=== PATIENT | male | born 1965 | race Caucasian/White ===

== ENCOUNTER → 2016-07-26 | Day surgery (SDC) | payer OTHER ==
[~2016-07-26] VITALS: Ht 180.3 cm; Wt 132.9 kg
[~2016-07-26] MED LIST: FLOMAX0.4 M1 PO; FLONASE ALLERG9.9 ML; LEVOTHYROXINE50 MCG PO; PERCOCET 5-3251 EACH PO; PROAIR HFA8.5 GM INH; PROSCAR5 M1 PO; ZANTAC150 M1 PO
--- NOTE | 2016-07-26 15:31 | Operative Report ---
Operative/Inv Procedure Report Surgery Date: 07/26/16 Name of Procedure: Laparoscopic incisional hernia repair Pre-Operative Diagnosis: Incisional hernia Post-Operative Diagnosis: Same Estimated Blood Loss: scant Surgeon/Stretch Box Tender: NIA PALM,ISMAEL Anderson/Eduarda VISNON Anesthesia: general endotracheal tube Implants: 9 cm Parietex mesh Operative/Procedure Note Note: After consent is brought to the operating room and laid supine. Gen. anesthesia was obtained and his abdomen was prepped and draped. Skin the left upper quadrant was able to local anesthesia a transverse incision made sharply. We gained access to the peritoneum using a 12 mm optical trocar. Pneumoperitoneum was achieved. There is no overt bowel injury. 2, 5 mm ports were placed in the left lower quadrant after local anesthesia instilled and under direct vision the camera. The abdomen was explored. There was an umbilical hernia defect that repaired previously. It appeared to be intact. There was a superiorly based defect above the umbilicus. It measured 2 cm in greatest dimension. We took down the falciform ligament in the preperitoneal fat the hernia sac was delivered. We chose a 9 cm round piece of Parietex mesh to cover the hernia defect as well as a prior umbilical site to the concern of a recurrent umbilical hernia. The mesh was marked for orientation. 0 Canterbury-Link sutures were then placed in 4 quadrants. The mesh was Then hydrated rolled up and placed the peritoneal cavity. It was unraveled below the defect. The transfixion sutures then brought up percutaneously and tied down. The mesh was circumferentially adhered to keep abdominal wall using the absorbable tackers in a double crown fashion. The hernia sac contents were then extracted in the ports removed. The fascia and left upper quadrant was closed with 0 Vicryl suture. Skin incisions closed with 4-0 Vicryl. Steri-Strips and sterile dressing applied. Sponge and needle counts are correct CC: SUSIE DUENAS APRN
== END ==
LOC: STS 03:00
DX: K43.2 Incisional hernia without obstruction or gangrene (principal); E03.9 Hypothyroidism, unspecified; M54.12 Radiculopathy, cervical region; M53.9 Dorsopathy, unspecified; Z22.322 Carrier or suspected carrier of Methicillin resistant Staphylococcus aureus; Z87.891 Personal history of nicotine dependence
CPT/HCPCS: C9399; J2250